=== PATIENT | female | born 1975 | race African-American/Black ===

== ENCOUNTER 2017-10-12 14:26 | Emergency (ER) | payer MEDICAID ==
[~2017-10-12] VITALS: Ht 165.1 cm; Wt 85.7 kg
[2017-10-12 14:52] VITALS: BP 123/81
[2017-10-12] MEDS ORDERED: NALBUPHINE HCL 10 MG/1ml INJECTION IM ONE (15:30)
[2017-10-12] MEDS ORDERED: ONDANSETRON ODT 4 MG TAB PO ONE (15:45)
== END 2017-10-12 16:08 | disposition home or self-care (01) ==
LOC: ER 14:26
DX: G43.909 Migraine, unspecified, not intractable, without status migrainosus (principal)
CPT/HCPCS: 96372; 99283; J2300; Q0162

== ENCOUNTER 2017-10-26 14:00 | Emergency (ER) | payer MEDICAID ==
[~2017-10-26] VITALS: Ht 165.1 cm; Wt 85.7 kg
[2017-10-26 14:19] VITALS: BP 154/97
[2017-10-26] MEDS ORDERED: MEPERIDINE HCL (50 MG/ML) 1 ML VIAL IM ONE (16:30)
[2017-10-26] MEDS ORDERED: PROMETHAZINE HCL 25 MG/ML 1ML IM ONE (16:30)
== END 2017-10-26 17:27 | disposition home or self-care (01) ==
LOC: ER 14:00
DX: G43.909 Migraine, unspecified, not intractable, without status migrainosus (principal); Z87.11 Personal history of peptic ulcer disease
CPT/HCPCS: 96372; 99284; J2175; J2550

== ENCOUNTER 2018-01-20 06:59 | Emergency (ER) | payer MEDICAID, OTHER ==
[~2018-01-20] VITALS: Ht 165.1 cm; Wt 85.7 kg
[2018-01-20 07:54] LABS: Basophils # (auto) 0 uL; Basophils % (auto) 0.7 % (0.0-2.0); Eosinophils # (auto) 0.1 uL; Eosinophils % (auto) 0.9 % (0.0-7.0); Hemoglobin 12.9 g/dL (12.2-16.2); Lymphocytes # (auto) 1.6 uL; Lymphocytes % (auto) 27.6 % (10.0-50.0); Mean Corpuscular Hemoglobin 30.9 pg (28.0-32.0); Mean Corpuscular Hgb Conc. 33.1 g/dL (32.0-36.0); Mean Corpuscular Volume 93.3 fL (80.0-100.0); Monocytes # (auto) 0.5 uL; Monocytes % (auto) 8.2 % (0.0-12.0); Neutrophils # (auto) 3.5 uL; Neutrophils % (auto) 62.6 % (37.0-80.0); Nucleated Red Blood Cells % 0.1 %; Platelet Count (auto) 227 10^3/uL (140-450); Red Blood Cells 4.18 10^6/uL (4.0-5.20); Red Cell Distribution Width 14.2 % (11.8-14.3); White Blood Cell 5.7 10^3/uL (4.4-10.8)
[2018-01-20 08:10] LABS: Alanine Aminotransferase 33 U/L (13-56); Albumin 3.3 g/dL (3.4-5.0); Alkaline Phosphatase 85 U/L (45-117); Anion Gap 6 (5-15); Aspartate Aminotransferase 18 U/L (15-37); BUN/Creatinine Ratio 18.1; Bilirubin, Total 0.4 mg/dL (0.2-1.0); Blood Urea Nitrogen 13 mg/dL (7-18); Calcium 8.2 mg/dL (8.5-10.1); Carbon Dioxide 23 mmol/L (21-32); Chloride 110 mmol/L (98-107); GFR African American 114 mL/min; GFR Non-African American 94 mL/min; Glucose 98 mg/dL (74-106); Magnesium 2.4 mg/dL (1.6-2.6); Potassium 4.1 mmol/L (3.5-5.1); Sodium 139 mmol/L (136-145); Total Protein 7.1 g/dL (6.4-8.2)
[2018-01-20] MEDS ORDERED: SODIUM CHLORIDE 0.9% 1,000 ML IV ONE (08:31)
[2018-01-20] MEDS ORDERED: ALUM & MAG HYDROX-SIMETH LIQ(MAALOX) 30 ML PO ONE (08:45)
[2018-01-20] MEDS ORDERED: DONNATAL 5ml ORAL Elix (BELLADONNA ALK-PHENOBARB) PO ONE (08:45)
[2018-01-20] MEDS ORDERED: FAMOTIDINE 20 MG TAB PO ONE (08:45)
[2018-01-20] MEDS ORDERED: ONDANSETRON ODT 4 MG TAB PO ONE ×2 (08:45→09:00)
[2018-01-20] MEDS ORDERED: HYDROcodone-ACET 5/325MG TAB PO ONE (10:45)
[2018-01-20 13:45] VITALS: BP 11/73
== END 2018-01-20 13:49 | disposition home or self-care (01) ==
LOC: ER 06:59
DX: R07.89 Other chest pain (principal); R10.13 Epigastric pain; Z88.8 Allergy status to other drugs, medicaments and biological substances
CPT/HCPCS: 36415; 71046; 80053; 83735; 84443; 84484; 85025; 93005; 99285; J7030; Q0162

== ENCOUNTER 2018-02-10 11:36 | Observation (INO) | payer MEDICAID ==
[~2018-02-10] VITALS: Ht 165.1 cm; Wt 85.7 kg
[2018-02-10] MEDS ORDERED: SODIUM CHLORIDE 0.9% 1,000 ML IVB ONE (12:23)
[2018-02-10] MEDS ORDERED: ONDANSETRON HCL 4 MG/2 ML VIAL IV ONE (12:30)
[2018-02-10 13:05] LABS: Basophils # (auto) 0 uL; Basophils % (auto) 0.7 % (0.0-2.0); Eosinophils # (auto) 0 uL; Eosinophils % (auto) 0.8 % (0.0-7.0); Hematocrit 37.2 % (36.0-46.0); Hemoglobin 12.4 g/dL (12.2-16.2); Lymphocytes # (auto) 1.6 uL; Lymphocytes % (auto) 33.1 % (10.0-50.0); Mean Corpuscular Hgb Conc. 33.2 g/dL (32.0-36.0); Mean Corpuscular Volume 93.2 fL (80.0-100.0); Monocytes # (auto) 0.4 uL; Monocytes % (auto) 8.8 % (0.0-12.0); Neutrophils # (auto) 2.7 uL; Neutrophils % (auto) 56.6 % (37.0-80.0); Nucleated Red Blood Cells % 0.1 %; Platelet Count (auto) 214 10^3/uL (140-450); Red Blood Cells 3.99 10^6/uL (4.0-5.20); Red Cell Distribution Width 13.7 % (11.8-14.3); White Blood Cell 4.8 10^3/uL (4.4-10.8)
[2018-02-10 13:18] LABS: Urine Bacteria NONE SEEN /hpf (None Seen); Urine Blood Negative /uL (Negative); Urine Specific Gravity 1.021 (1.001-1.035); Urine Sperm PRESENT /hpf (None Seen); Urine WBC <1 /hpf (0 - 5)
[2018-02-10 13:22] LABS: Prothrombin Time 10.7 sec (9.27-12.13)
[2018-02-10 13:25] LABS: Albumin 3.3 g/dL (3.4-5.0); BUN/Creatinine Ratio 17.8; Calcium 7.7 mg/dL (8.5-10.1); Potassium 4.1 mmol/L (3.5-5.1)
[2018-02-10 13:35] LABS: Bilirubin, Total 0.3 mg/dL (0.2-1.0); Total Protein 6.9 g/dL (6.4-8.2)
[2018-02-10] MEDS ORDERED: PROMETHAZINE HCL 25 MG/ML 1ML IV ONE (13:45)
[2018-02-10] MEDS ORDERED: MORPHINE SULFATE 4 MG/ML SYR/VIAL IV ONE (13:45)
[2018-02-10 15:00] VITALS: BP 122/72
== END 2018-02-10 15:43 | disposition home or self-care (01) | DRG 249 ==
LOC: ER 11:36 → OVERFLOW 11:37 → ER 15:43
PROVIDERS: ADMIT Family Medicine; ATTEND Family Medicine
DX: K52.9 Noninfective gastroenteritis and colitis, unspecified (principal); F41.9 Anxiety disorder, unspecified; Z98.84 Bariatric surgery status
CPT/HCPCS: 36415; 74176; 80053; 81001; 81025; 83735; 85025; 85610; 85730; 96361; 96374; 96375; 99285; G0378; J2270; J2405; J2550

== ENCOUNTER 2018-06-22 22:31 | Emergency (ER) | payer MEDICAID ==
[~2018-06-22] VITALS: Ht 162.6 cm; Wt 89.8 kg
[2018-06-23 00:22] LABS: Urine Bacteria NONE SEEN /hpf (None Seen); Urine Blood Negative /uL (Negative); Urine Specific Gravity 1.023 (1.001-1.035); Urine WBC 1 /hpf (0 - 5)
[2018-06-23 00:30] LABS: Basophils # (auto) 0 uL; Basophils % (auto) 0.6 % (0.0-2.0); Eosinophils # (auto) 0.1 uL; Eosinophils % (auto) 1.3 % (0.0-7.0); Hematocrit 42.4 % (36.0-46.0); Hemoglobin 13.8 g/dL (12.2-16.2); Lymphocytes # (auto) 1.8 uL; Lymphocytes % (auto) 31.2 % (10.0-50.0); Mean Corpuscular Hgb Conc. 32.6 g/dL (32.0-36.0); Mean Corpuscular Volume 92.1 fL (80.0-100.0); Monocytes # (auto) 0.6 uL; Monocytes % (auto) 10.4 % (0.0-12.0); Neutrophils # (auto) 3.3 uL; Neutrophils % (auto) 56.5 % (37.0-80.0); Nucleated Red Blood Cells % 0.1 %; Platelet Count (auto) 295 10^3/uL (140-450); White Blood Cell 5.9 10^3/uL (4.4-10.8)
[2018-06-23 00:48] LABS: Albumin 3.6 g/dL (3.4-5.0); Potassium 4.5 mmol/L (3.5-5.1)
[2018-06-23 00:49] LABS: BUN/Creatinine Ratio 22.5
[2018-06-23 00:52] LABS: Bilirubin, Total 0.2 mg/dL (0.2-1.0); Total Protein 7.9 g/dL (6.4-8.2)
[2018-06-23 07:27] VITALS: BP 130/95
== END 2018-06-23 09:01 | disposition home or self-care (01) ==
LOC: ER 22:31
DX: G43.909 Migraine, unspecified, not intractable, without status migrainosus (principal); I88.9 Nonspecific lymphadenitis, unspecified; Z98.51 Tubal ligation status
CPT/HCPCS: 36415; 70360; 70450; 70490; 80053; 81001; 84443; 85025

== ENCOUNTER 2019-01-23 15:14 | Emergency (ER) | payer MEDICAID ==
[~2019-01-23] VITALS: Ht 162.6 cm; Wt 96.6 kg
[2019-01-23 15:51] LABS: Urine WBC None Seen /hpf (0 - 5)
[2019-01-23 15:59] LABS: Basophils # (auto) 0.1 uL; Eosinophils # (auto) 0.1 uL; Eosinophils % (auto) 1.2 % (0.0-7.0); Hematocrit 37.3 % (36.0-46.0); Hemoglobin 12.4 g/dL (12.2-16.2); Lymphocytes # (auto) 2.1 uL; Lymphocytes % (auto) 41.1 % (10.0-50.0); Mean Corpuscular Hemoglobin 28.5 pg (28.0-32.0); Mean Corpuscular Hgb Conc. 33.2 g/dL (32.0-36.0); Mean Corpuscular Volume 85.9 fL (80.0-100.0); Monocytes # (auto) 0.4 uL; Monocytes % (auto) 8.8 % (0.0-12.0); Neutrophils # (auto) 2.4 uL; Neutrophils % (auto) 47.9 % (37.0-80.0); Nucleated Red Blood Cells % 0.1 %; Platelet Count (auto) 277 10^3/uL (140-450); Red Blood Cells 4.34 10^6/uL (4.0-5.20); Red Cell Distribution Width 13.9 % (11.8-14.3); White Blood Cell 5.1 10^3/uL (4.4-10.8)
[2019-01-23 16:06] LABS: Urine Bacteria NONE SEEN /hpf (None Seen); Urine Blood Negative /uL (Negative); Urine Specific Gravity 1.023 (1.001-1.035)
[2019-01-23 16:16] LABS: Calcium 8.2 mg/dL (8.5-10.1); Potassium 4.4 mmol/L (3.5-5.1)
[2019-01-23 16:20] LABS: Albumin 3.4 g/dL (3.4-5.0); BUN/Creatinine Ratio 11.7
[2019-01-23 16:23] LABS: Bilirubin, Total 0.3 mg/dL (0.2-1.0); Total Protein 7.3 g/dL (6.4-8.2)
[2019-01-23] MEDS ORDERED: ONDANSETRON HCL 4 MG/2 ML VIAL IV ONE (19:15)
[2019-01-23] MEDS ORDERED: MORPHINE SULFATE 4 MG/ML SYR/VIAL IV ONE (19:15)
[2019-01-23] MEDS ORDERED: SODIUM CHLORIDE 0.9% 1,000 ML IV ONE (19:15)
[2019-01-23] MEDS ORDERED: IOHEXOL 300 MG/ML 100ML BOTTLE IJ ONE ×2 (19:24→20:46)
[2019-01-23] MEDS ORDERED: HYDROmorphone HCL 2 MG/ML VL IV ONE (22:30)
[2019-01-23 23:55] VITALS: BP 144/82
[2019-01-24] MEDS ORDERED: diphenhdrAMINE HCL 50 MG/1 ML VL IV ONE (00:15)
== END 2019-01-24 00:46 | disposition home or self-care (01) ==
LOC: ER 15:14
DX: G43.909 Migraine, unspecified, not intractable, without status migrainosus (principal); R19.7 Diarrhea, unspecified; Z98.51 Tubal ligation status; Z88.8 Allergy status to other drugs, medicaments and biological substances
CPT/HCPCS: 36415; 74177; 80053; 81001; 81025; 82962; 85025; 96361; 96374; 96375; 99284; J1170; J1200; J2270; J2405; J7030; Q9967

== ENCOUNTER 2019-02-14 11:14 | Emergency (ER) | payer MEDICAID ==
[~2019-02-14] VITALS: Ht 165.1 cm; Wt 94.3 kg
[2019-02-14] MEDS ORDERED: PROMETHAZINE HCL 25 MG/ML 1ML IM ONE (13:00)
[2019-02-14] MEDS ORDERED: HYDROmorphone HCL 2 MG/ML VL IM ONE (13:00)
[2019-02-14] MEDS ORDERED: diphenhdrAMINE HCL 50 MG/1 ML VL IM ONE (13:00)
[2019-02-14 13:59] VITALS: BP 152/94
== END 2019-02-14 13:53 | disposition home or self-care (01) ==
LOC: ER 11:14
DX: M54.5 Low back pain (principal); G89.29 Other chronic pain; Z98.51 Tubal ligation status; Z88.6 Allergy status to analgesic agent; Z88.8 Allergy status to other drugs, medicaments and biological substances
CPT/HCPCS: 72100; 96372; 99283; J1170; J1200; J2550

== ENCOUNTER 2019-05-01 11:21 | Emergency (ER) | payer MEDICAID ==
[~2019-05-01] VITALS: Ht 165.1 cm; Wt 93.0 kg
[2019-05-01 12:25] VITALS: BP 122/86
[2019-05-01] MEDS ORDERED: methylPREDNISolone SOD SUCC 125 MG/2 ML VL IM ONE (13:15)
[2019-05-01] MEDS ORDERED: PROMETHAZINE HCL 25 MG/ML 1ML IM ONE (13:15)
[2019-05-01] MEDS ORDERED: MEPERIDINE HCL (50 MG/ML) 1 ML VIAL IM ONE (13:15)
== END 2019-05-01 13:47 | disposition home or self-care (01) ==
LOC: ER 11:21
DX: M54.5 Low back pain (principal); G89.29 Other chronic pain; Z88.5 Allergy status to narcotic agent; Z88.8 Allergy status to other drugs, medicaments and biological substances
CPT/HCPCS: 96372; 99283; J2175; J2550; J2930

== ENCOUNTER 2022-04-01 23:09 | Emergency (ER) | payer MEDICAID ==
[~2022-04-01] VITALS: Ht 165.1 cm; Wt 99.1 kg
[2022-04-02 00:38] LABS: Urine Bacteria FEW /hpf (None Seen); Urine Blood Negative /uL (Negative); Urine Hyaline Cast FEW /lpf (0 - 2); Urine Mucus FEW (None Seen); Urine Specific Gravity 1.035 (1.001-1.035); Urine WBC 5 /hpf (0 - 5)
[2022-04-02 00:45] LABS: Albumin 3.7 g/dL (3.4-5.0); BUN/Creatinine Ratio 17.9; Calcium 9.3 mg/dL (8.5-10.1); Potassium 4.4 mmol/L (3.5-5.1)
[2022-04-02 00:47] LABS: Bilirubin, Total 0.3 mg/dL (0.2-1.0); Total Protein 8.1 g/dL (6.4-8.2)
[2022-04-02 00:54] LABS: Basophils # (auto) 0 10 ^3/uL (0-0.2); Hematocrit 43.7 % (36.0-46.0)
[2022-04-02 00:57] LABS: Basophils % (auto) 0.7 % (0.0-2.0); Eosinophils # (auto) 0 10 ^3/uL (0-0.8); Eosinophils % (auto) 0.9 % (0.0-7.0); Lymphocytes # (auto) 2.2 10 ^3/uL (0.4-5.4); Lymphocytes % (auto) 40.2 % (10.0-50.0); Mean Corpuscular Hemoglobin 28.3 pg (28.0-32.0); Mean Corpuscular Hgb Conc. 31.9 g/dL (32.0-36.0); Mean Corpuscular Volume 88.5 fL (80.0-100.0); Monocytes # (auto) 0.4 10 ^3/uL (0-1.3); Monocytes % (auto) 7.2 % (0.0-12.0); Neutrophils # (auto) 2.8 10 ^3/uL (1.6-8.6); Red Blood Cells 4.94 10^6/uL (4.0-5.20); Red Cell Distribution Width 13.5 % (11.8-14.3); White Blood Cell 5.5 10^3/uL (4.4-10.8)
[2022-04-02] MEDS ORDERED: HYDROcodone-ACET 10/325MG TAB PO ONE ×2 (02:00→02:30)
[2022-04-02] MEDS ORDERED: IBUP600T27 PO (02:31)
[2022-04-02] MEDS ORDERED: HYDR-4902 PO (02:31)
[2022-04-02 02:40] VITALS: BP 169/91
== END 2022-04-02 02:43 | disposition home or self-care (01) ==
LOC: ER 23:09
DX: K80.50 Calculus of bile duct without cholangitis or cholecystitis without obstruction (principal); Z98.51 Tubal ligation status; Z88.6 Allergy status to analgesic agent
CPT/HCPCS: 36415; 76705; 80053; 81001; 85025

== ENCOUNTER 2022-04-23 00:51 | Emergency (ER) | payer MEDICAID ==
[~2022-04-23] VITALS: Ht 165.1 cm; Wt 99.5 kg
[~2022-04-23 00:51] MED LIST: HYDR-4902 PO; IBUP600T27 PO
[2022-04-23 01:24] VITALS: BP 168/96
[2022-04-23 02:08] LABS: Basophils # (auto) 0.1 10 ^3/uL (0-0.2); Basophils % (auto) 1.2 % (0.0-2.0); Eosinophils # (auto) 0 10 ^3/uL (0-0.8); Hematocrit 40.1 % (36.0-46.0); Hemoglobin 13.2 g/dL (12.2-16.2); Lymphocytes # (auto) 1.8 10 ^3/uL (0.4-5.4); Lymphocytes % (auto) 40.9 % (10.0-50.0); Mean Corpuscular Hemoglobin 29.4 pg (28.0-32.0); Mean Corpuscular Hgb Conc. 32.8 g/dL (32.0-36.0); Mean Corpuscular Volume 89.6 fL (80.0-100.0); Monocytes # (auto) 0.4 10 ^3/uL (0-1.3); Neutrophils # (auto) 2.2 10 ^3/uL (1.6-8.6); Neutrophils % (auto) 48.9 % (37.0-80.0); Nucleated Red Blood Cells % 0.1 %; Red Blood Cells 4.48 10^6/uL (4.0-5.20); Red Cell Distribution Width 13.9 % (11.8-14.3); White Blood Cell 4.4 10^3/uL (4.4-10.8)
[2022-04-23] MEDS ORDERED: ONDANSETRON ODT 4 MG TAB PO ONE (02:15)
[2022-04-23] MEDS ORDERED: HYDROcodone-ACET 10/325MG TAB PO ONE (02:15)
[2022-04-23 02:23] LABS: Albumin 3.7 g/dL (3.4-5.0); Calcium 9.4 mg/dL (8.5-10.1); Potassium 4.5 mmol/L (3.5-5.1)
[2022-04-23 02:27] LABS: BUN/Creatinine Ratio 26.7; Bilirubin, Total 0.3 mg/dL (0.2-1.0); Total Protein 7.2 g/dL (6.4-8.2)
== END 2022-04-24 06:22 | disposition left against medical advice (07) ==
LOC: ER 00:51
DX: G43.909 Migraine, unspecified, not intractable, without status migrainosus (principal); M54.9 Dorsalgia, unspecified; R94.31 Abnormal electrocardiogram [ECG] [EKG]; Z88.6 Allergy status to analgesic agent; Z88.8 Allergy status to other drugs, medicaments and biological substances; Z98.51 Tubal ligation status
CPT/HCPCS: 36415; 71045; 80053; 84484; 85025; 93005

== ENCOUNTER 2023-01-09 09:09 | Day surgery (SDC) | payer MEDICAID ==
[~2023-01-09] VITALS: Ht 165.1 cm; Wt 76.7 kg
[2023-01-09] VITALS (10 sets, daily range): BP systolic 131–176; BP diastolic 87–110; PULSE 86–92; RESP 12–16; TEMP 98.2; O2SAT 98–100
[~2023-01-09 09:09] MED LIST changes: +GABA-1254 GT; -HYDR-4902 PO; -IBUP600T27 PO; +METO25TA5 PO; +MORP1TAB12 PO; +SEMA2INJ3 SC; +ZOFR4T PO
[2023-01-09] MEDS ORDERED: LIDOCAINE 2%HCL (LOCAL ANESTH.) INJ 20ML MDV ONE ×2 (09:19→10:04)
[2023-01-09] MEDS ORDERED: IODIXANOL 320MG/ML 100ML BTL IV ONE ×2 (09:19→10:04)
[2023-01-09] MEDS ORDERED: VERAPAMIL 2.5MG/ML INJ 2ML VIAL IV ONE (09:42)
[2023-01-09] MEDS ORDERED: HEPARIN SODIUM (PORCINE) 5000 UNITS/ML 1ML VIAL ONE (09:42)
[2023-01-09] MEDS ORDERED: ANGIOMAX 250 MG VIAL IV ONE (09:42)
[2023-01-09] MEDS ORDERED: fentaNYL CITRATE 100 MCG/2 ML VL ONE (09:43)
[2023-01-09] MEDS ORDERED: SODIUM CHL 0.9% 0 ML ONE (09:43)
[2023-01-09] MEDS ORDERED: MIDAZOLAM HCL 2MG/2ML 2ml VIAL (1mg/ml) ONE (09:43)
[2023-01-09] MEDS ORDERED: ONDANSETRON HCL 4 MG/2 ML VIAL IV PRN (11:45)
[2023-01-09] MEDS ORDERED: OXYCODONE W/ ACETAMINOPHEN 5/325MG TABLET PO ONE (12:30)
[2023-01-09] MEDS ORDERED: OXYCODONE W/ ACETAMINOPHEN 5/325MG TABLET ONE (12:40)
[2023-01-09] MEDS ORDERED: hydrALAZINE HCL 20 MG/ML VL ONE (13:20)
[2023-01-09] MEDS ORDERED: hydrALAZINE HCL 20 MG/ML VL IV ONE (13:30)
[2023-01-10] MEDS ORDERED: MORP1TAB12 PO ×2 (10:00)
[2023-01-10] MEDS ORDERED: GABA-1250 PO ×2 (10:00)
[2023-01-10] MEDS ORDERED: SEMA4INJ SC ×2 (10:00)
[2023-01-10] MEDS ORDERED: ONDA-188 PO ×2 (10:00)
[2023-01-10] MEDS ORDERED: MECL1TAB31 PO ×2 (12:15)
[2023-01-10] MEDS ORDERED: CLOP75TA28 PO ×2 (12:15)
[2023-01-10] MEDS ORDERED: ASPI1TAB20 PO ×2 (12:15)
== END 2023-01-09 13:40 | disposition home or self-care (01) ==
LOC: CATH 09:09
PROVIDERS: ATTEND Internal Medicine
DX: R94.39 Abnormal result of other cardiovascular function study (principal); I20.9 Angina pectoris, unspecified; I10 Essential (primary) hypertension; Z79.899 Other long term (current) drug therapy
CPT/HCPCS: 93458; C1725; C1769; C1887; C1894; J0360; J1644; J2250; J2405; J3010; Q9967; 99152; 99153

== ENCOUNTER 2023-01-09 17:01 | Inpatient (IN) | payer MEDICAID ==
[~2023-01-09] VITALS: Ht 165.1 cm; Wt 80.0 kg
[2023-01-09 17:42] VITALS: PULSE 106; RESP 13; O2SAT 98
[2023-01-09 18:28] LABS: Basophils # (auto) 0 10 ^3/uL (0-0.2); Basophils % (auto) 0.4 % (0.0-2.0); Eosinophils # (auto) 0 10 ^3/uL (0-0.8); Eosinophils % (auto) 0.2 % (0.0-7.0); Hematocrit 37.9 % (36.0-46.0); Hemoglobin 12.5 g/dL (12.2-16.2); Lymphocytes # (auto) 1.8 10 ^3/uL (0.4-5.4); Mean Corpuscular Hemoglobin 30.8 pg (28.0-32.0); Mean Corpuscular Hgb Conc. 32.8 g/dL (32.0-36.0); Monocytes # (auto) 0.5 10 ^3/uL (0-1.3); Monocytes % (auto) 8.4 % (0.0-12.0); Neutrophils # (auto) 3.4 10 ^3/uL (1.6-8.6); Nucleated Red Blood Cells % 0.1 %; Red Blood Cells 4.04 10^6/uL (4.0-5.20); Red Cell Distribution Width 14.3 % (11.8-14.3); White Blood Cell 5.7 10^3/uL (4.4-10.8)
[2023-01-09] MEDS ORDERED: ONDANSETRON HCL 4 MG/2 ML VIAL IV ONE ×2 (18:30→23:00)
[2023-01-09 18:41] LABS: Alanine Aminotransferase 19 U/L (7-40); Albumin 4.4 g/dL (3.2-4.8); Alkaline Phosphatase 79 U/L (46-116); Anion Gap 13 (5-15); Aspartate Aminotransferase 22 U/L (13-40); BUN/Creatinine Ratio 10.4 (10.0-20.0); Bilirubin, Total 0.5 mg/dL (0.2-1.0); Blood Urea Nitrogen 7 mg/dL (9-23); Calcium 9.6 mg/dL (8.7-10.4); Carbon Dioxide 20 mmol/L (20-30); Chloride 102 mmol/L (98-107); Glucose 93 mg/dL (74-106); Magnesium 1.8 mg/dL (1.6-2.6); Potassium 4.4 mmol/L (3.5-5.1); Sodium 135 mmol/L (136-145)
[2023-01-09 18:42] LABS: INR 1.07 (0.9-1.15); Partial Thromboplastin Time 28.8 SEC (24.5-34.5); Prothrombin Time 11.2 sec (9.3-11.8)
[2023-01-09] MEDS ORDERED: MAGNESIUM SULFATE 1GM/100ML 100 ML IV ONE (19:00)
[2023-01-09 19:30] VITALS: PULSE 98; RESP 20; O2SAT 98
[2023-01-09 20:40] LABS: Urine Bacteria NONE SEEN /hpf (None Seen); Urine Blood Negative /uL (Negative); Urine Clarity Clear (Clear); Urine Color Colorless (Yellow); Urine Protein, UAD Negative (Negative); Urine Specific Gravity 1.015 (1.001-1.035); Urine Urobilinogen Normal (Negative); Urine WBC <1 /hpf (0 - 5)
[2023-01-09] MEDS ORDERED: diphenhdrAMINE HCL 50 MG/1 ML VL IV ONE (21:00)
[2023-01-09] MEDS ORDERED: METOCLOPRAMIDE HCL 5MG/ml INJ 2ml VIAL IV ONE (21:00)
[2023-01-09] MEDS ORDERED: MORPHINE SULFATE 4 MG/ML SYR/VIAL IV ONE (23:00)
[2023-01-10] MEDS ORDERED: ENOXAPARIN SOD 80 MG/0.8ML SYRINGE SC ONE
[2023-01-10] MEDS ORDERED: ASPirin 325 MG TAB PO ONE
[2023-01-10] MEDS ORDERED: MORPHINE SULFATE 4 MG/ML SYR/VIAL IV ONE (00:30)
[2023-01-10] MEDS ORDERED: NITROGLYCERIN 0.4 MG SL TAB SL PRN (00:45)
[2023-01-10] MEDS ORDERED: dilTIAZem 25 MG/5 ML VIAL IV ONE (00:45)
[2023-01-10] MEDS ORDERED: ACETAMINOPHEN 325 MG TAB PO PRN (00:45)
[2023-01-10] MEDS ORDERED: SUMAtriptan SUCCINATE 25 MG TAB PO ONE (01:15)
[2023-01-10 01:50] LABS: Chloride 105 mmol/L (98-107); Potassium 3.9 mmol/L (3.5-5.1); Sodium 137 mmol/L (136-145)
[2023-01-10 01:51] LABS: Anion Gap 11 (5-15); Carbon Dioxide 21 mmol/L (20-30)
[2023-01-10 01:52] LABS: Calcium 9.1 mg/dL (8.7-10.4)
[2023-01-10 01:56] LABS: Glucose 110 mg/dL (74-106)
[2023-01-10 01:59] LABS: BUN/Creatinine Ratio 7.6 (10.0-20.0); Blood Urea Nitrogen < 5 mg/dL (9-23)
[2023-01-10] MEDS: TEMAZEPAM 15 MG CAP PO PRN ×2 (02:12→21:59)
[2023-01-10] MEDS: ONDANSETRON HCL 4 MG/2 ML VIAL IV PRN ×4 (02:12→18:07)
[2023-01-10] MEDS ORDERED: HYDROcodone-ACET 7.5/325MG TAB PO ONE (04:30)
[2023-01-10] MEDS ORDERED: LORazepam 2MG/ML-1ML VIAL IV PRN (09:45)
[2023-01-10 09:59] VITALS: BP 144/95; PULSE 102; RESP 18; TEMP 98.4; O2SAT 98
[2023-01-10] MEDS ORDERED: MORP1TAB12 PO ×2 (10:00)
[2023-01-10] MEDS ORDERED: GABA-1250 PO ×2 (10:00)
[2023-01-10] MEDS ORDERED: GABAPENTIN 300 MG CAP PO SCH (10:00)
[2023-01-10] MEDS ORDERED: METOPROLOL TARTRATE 25 MG TAB PO SCH (10:00)
[2023-01-10] MEDS ORDERED: ONDA-188 PO ×2 (10:00)
[2023-01-10] MEDS ORDERED: SEMA4INJ SC ×2 (10:00)
[2023-01-10] MEDS ORDERED: OXYCODONE W/ ACETAMINOPHEN 5/325MG TABLET PO ONE (10:15)
[2023-01-10] MEDS: PANTOPRAZOLE 40 MG TAB PO SCH (10:36)
[2023-01-10] MEDS: GABAPENTIN 100 MG CAP PO SCH ×3 (10:37→21:59)
[2023-01-10] MEDS: METOPROLOL TARTRATE 50 MG TAB PO SCH ×2 (10:37→22:00)
[2023-01-10 11:30] LABS: Folate (Folic Acid) 12.24 ng/mL (>5.38)
[2023-01-10] MEDS: MORPHINE SULFATE INJ 2 MG/ml SYRG IV PRN ×3 (11:37→18:07)
[2023-01-10] MEDS ORDERED: CLOP75TA28 PO ×2 (12:15)
[2023-01-10] MEDS ORDERED: ASPI1TAB20 PO ×2 (12:15)
[2023-01-10] MEDS ORDERED: MECL1TAB31 PO ×2 (12:15)
[2023-01-10 13:46] LABS: Free T4 (Free Thyroxine) 1.22 ng/dL (0.89-1.76)
[2023-01-10 16:52] VITALS: BP 135/94; PULSE 93; RESP 20; TEMP 98.1; O2SAT 97
[2023-01-10 20:00] VITALS: PULSE 100; PULSE 92; RESP 18; O2SAT 99
[2023-01-10] MEDS ORDERED: MECLIZINE HCL 25 MG TAB PO ONE (20:15)
[2023-01-10] MEDS ORDERED: SODIUM CHLORIDE 0.9% 1,000 ML IV STA (20:32)
[2023-01-10] MEDS ORDERED: SODIUM CHLORIDE 0.9% 1,000 ML IV SCH (20:45)
[2023-01-10] MEDS: UBROGEPANT 100 MG PO PRN (22:00)
[2023-01-10 22:21] VITALS: BP 158/86; PULSE 92; RESP 18; TEMP 97.5; O2SAT 99
[2023-01-11] VITALS (7 sets, daily range): BP systolic 127–158; BP diastolic 84–120; PULSE 82–108; RESP 18–20; TEMP 97.5–98.5; O2SAT 97–99
[2023-01-11] MEDS ORDERED: HYDROcodone-ACET 7.5/325MG TAB PO ONE ×3 (00:30→14:30)
[2023-01-11] MEDS: ONDANSETRON HCL 4 MG/2 ML VIAL IV PRN ×3 (04:30→19:55)
[2023-01-11] MEDS: GABAPENTIN 100 MG CAP PO SCH ×3 (05:39→21:40)
[2023-01-11 06:21] LABS: Basophils # (auto) 0 10 ^3/uL (0-0.2); Basophils % (auto) 0.3 % (0.0-2.0); Eosinophils # (auto) 0 10 ^3/uL (0-0.8); Eosinophils % (auto) 1.2 % (0.0-7.0); Hematocrit 35.7 % (36.0-46.0); Hemoglobin 11.8 g/dL (12.2-16.2); Lymphocytes # (auto) 1.6 10 ^3/uL (0.4-5.4); Lymphocytes % (auto) 43.6 % (10.0-50.0); Mean Corpuscular Hemoglobin 31.1 pg (28.0-32.0); Mean Corpuscular Hgb Conc. 33.2 g/dL (32.0-36.0); Mean Corpuscular Volume 93.8 fL (80.0-100.0); Monocytes # (auto) 0.4 10 ^3/uL (0-1.3); Monocytes % (auto) 10.3 % (0.0-12.0); Neutrophils # (auto) 1.7 10 ^3/uL (1.6-8.6); Neutrophils % (auto) 44.6 % (37.0-80.0); Red Cell Distribution Width 13.6 % (11.8-14.3); White Blood Cell 3.7 10^3/uL (4.4-10.8)
[2023-01-11 06:40] LABS: Alanine Aminotransferase 19 U/L (7-40); Albumin 4.2 g/dL (3.2-4.8); Alkaline Phosphatase 68 U/L (46-116); Anion Gap 7 (5-15); Aspartate Aminotransferase 23 U/L (13-40); Bilirubin, Total 0.5 mg/dL (0.2-1.0); Calcium 9.1 mg/dL (8.7-10.4); Carbon Dioxide 23 mmol/L (20-30); Chloride 107 mmol/L (98-107); Glucose 102 mg/dL (74-106); Potassium 3.6 mmol/L (3.5-5.1); Sodium 137 mmol/L (136-145); Total Protein 6.4 g/dL (5.7-8.2)
[2023-01-11 06:55] LABS: BUN/Creatinine Ratio 8.3 (10.0-20.0); Blood Urea Nitrogen < 5 mg/dL (9-23)
[2023-01-11] MEDS: METOPROLOL TARTRATE 50 MG TAB PO SCH ×2 (08:42→21:41)
[2023-01-11] MEDS: PANTOPRAZOLE 40 MG TAB PO SCH (08:42)
[2023-01-11] MEDS ORDERED: amLODIPine BESYLATE 5 MG TAB PO ONE (17:15)
[2023-01-11] MEDS ORDERED: hydrALAZINE HCL 20 MG/ML VL IV PRN (18:30)
[2023-01-11 19:54] LABS: COVID19 ANTIGEN SOFIA FIA NEGATIVE (NEGATIVE)
[2023-01-11] MEDS ORDERED: HYDROcodone-ACET 7.5/325MG TAB PO PRN (21:00)
[2023-01-11] MEDS: TEMAZEPAM 15 MG CAP PO PRN (21:42)
[2023-01-11] MEDS: CLOPIDOGREL BISULFATE 75 MG TAB PO SCH (23:22)
[2023-01-11] MEDS: HYDROcodone-ACET 7.5/325MG TAB PO PRN (23:23)
[2023-01-12 05:07] VITALS: BP 98/52; PULSE 96; RESP 18; TEMP 97.9; O2SAT 99
[2023-01-12] MEDS: GABAPENTIN 100 MG CAP PO SCH ×2 (05:39→13:51)
[2023-01-12 06:20] LABS: Anion Gap 7 (5-15); Carbon Dioxide 25 mmol/L (20-30); Chloride 108 mmol/L (98-107); Potassium 3.7 mmol/L (3.5-5.1); Sodium 140 mmol/L (136-145)
[2023-01-12 06:26] LABS: Glucose 102 mg/dL (74-106)
[2023-01-12 06:32] LABS: Basophils # (auto) 0 10 ^3/uL (0-0.2); Basophils % (auto) 0.5 % (0.0-2.0); Eosinophils # (auto) 0.1 10 ^3/uL (0-0.8); Eosinophils % (auto) 1.4 % (0.0-7.0); Hematocrit 36.3 % (36.0-46.0); Lymphocytes # (auto) 1.6 10 ^3/uL (0.4-5.4); Monocytes # (auto) 0.4 10 ^3/uL (0-1.3); Monocytes % (auto) 11.4 % (0.0-12.0); Neutrophils # (auto) 1.6 10 ^3/uL (1.6-8.6); Neutrophils % (auto) 42.7 % (37.0-80.0); Nucleated Red Blood Cells % 0.1 %; Red Blood Cells 3.86 10^6/uL (4.0-5.20); Red Cell Distribution Width 13.9 % (11.8-14.3); White Blood Cell 3.7 10^3/uL (4.4-10.8)
[2023-01-12 06:33] LABS: BUN/Creatinine Ratio 8.8 (10.0-20.0); Blood Urea Nitrogen < 5 mg/dL (9-23)
[2023-01-12 08:00] VITALS: PULSE 97
[2023-01-12] MEDS: CLOPIDOGREL BISULFATE 75 MG TAB PO SCH (08:27)
[2023-01-12] MEDS: METOPROLOL TARTRATE 50 MG TAB PO SCH (08:27)
[2023-01-12] MEDS: PANTOPRAZOLE 40 MG TAB PO SCH (08:27)
[2023-01-12] MEDS: UBROGEPANT 100 MG PO PRN ×2 (08:27→13:51)
[2023-01-12] MEDS: HYDROcodone-ACET 7.5/325MG TAB PO PRN (08:30)
[2023-01-12] MEDS: ONDANSETRON HCL 4 MG/2 ML VIAL IV PRN ×2 (08:32→13:51)
[2023-01-12 09:00] VITALS: BP 140/100; PULSE 105; RESP 18; TEMP 98.1; O2SAT 98
[2023-01-12] MEDS ORDERED: ASPirin-EC 81 mg tab PO SCH (10:00)
[2023-01-12] MEDS ORDERED: MORPHINE SULF 15mg ER tab PO PRN (10:30)
[2023-01-12 13:00] VITALS: BP 121/93; PULSE 89; RESP 18; TEMP 98.5; O2SAT 99
[2023-01-12 17:00] VITALS: BP 128/77; PULSE 99; RESP 16; TEMP 98.3; O2SAT 96
[2023-01-12] MEDS ORDERED: ATORVASTATIN 20 MG TAB PO SCH (22:00)
[2023-01-13] MEDS ORDERED: ASPirin-EC 81 mg tab PO SCH (10:00)
== END 2023-01-12 18:36 | disposition home or self-care (01) | DRG 190 ==
LOC: ER 17:01 → TELE 01-10 00:45 → TELE-WESTW 01-10 09:06
PROVIDERS: ADMIT Internal Medicine Pulmonary Disease; ATTEND Internal Medicine Pulmonary Disease
DX: I21.4 Non-ST elevation (NSTEMI) myocardial infarction (principal); I63.9 Cerebral infarction, unspecified; I67.4 Hypertensive encephalopathy; G90.A Postural orthostatic tachycardia syndrome [POTS]; I10 Essential (primary) hypertension; R77.8 Other specified abnormalities of plasma proteins; E66.9 Obesity, unspecified; G43.909 Migraine, unspecified, not intractable, without status migrainosus; H81.10 Benign paroxysmal vertigo, unspecified ear; Z20.822 Contact with and (suspected) exposure to COVID-19; E11.42 Type 2 diabetes mellitus with diabetic polyneuropathy; I16.0 Hypertensive urgency; G89.29 Other chronic pain; I25.10 Atherosclerotic heart disease of native coronary artery without angina pectoris; Z82.49 Family history of ischemic heart disease and other diseases of the circulatory system; Z68.29 Body mass index [BMI] 29.0-29.9, adult; Z79.899 Other long term (current) drug therapy; Z82.5 Family history of asthma and other chronic lower respiratory diseases; Z83.3 Family history of diabetes mellitus; Z98.84 Bariatric surgery status; Z88.8 Allergy status to other drugs, medicaments and biological substances; F11.23 Opioid dependence with withdrawal; F41.9 Anxiety disorder, unspecified; F32.A Depression, unspecified; I95.1 Orthostatic hypotension
CPT/HCPCS: 36415; 70450; 70551; 71045; 80048; 80053; 81001; 82607; 82746; 83735; 83880; 84439; 84443; 84484; 85025; 85379; 85610; 85730; 87426; 93005; 93306; 93886; 97110; 97116; 97163; 97530; G0378; J2405